=== PATIENT | female | born 1955 | race Caucasian/White ===

== ENCOUNTER 2021-01-28 15:21 | Emergency (ER) | payer MEDICAID ==
--- NOTE | 2021-01-28 15:29 | EDM.PDOC ---
<FerminGasper - Last Filed: 01/28/21 20:38> ED HPI GENERAL MEDICAL PROBLEM - General Chief Complaint: Cardiovascular Problem Stated Complaint: EMS Time Seen by Provider: 01/28/21 15:24 - Related Data Allergies Allergy/AdvReac Type Severity Reaction Status Date / Time Penicillins Allergy Other Verified 01/28/21 15:33 Home Meds: Home Meds hydroCHLOROthiazide [Hydrochlorothiazide] 25 mg PO DAILY 01/28/21 [History] lisinopriL [Lisinopril] 40 mg PO DAILY 01/28/21 [History] Course - Re-Assessments/Exams Free Text/Narrative Re-Assessment/Exam: 01/28/21 19:00 This patient was signed out to me from Dr. Del Rio at this time. I promptly performed a detailed physical examination, my examination was performed after ED treatments were initiated by the signout provider. Patient has been under the care of the previous provider up until this point. 01/28/21 20:40 Patient is choosing to leave against medical advice. I personally explained to the patient that choosing to do so may result in permanent bodily harm or . I discussed at great length that without further evaluation and monitoring t here may be unforeseen circumstances and deterioration causing permanent bodily harm or as a result of their choice. The patient is alert, oriented, and competent at this time. The patient states that they are aware of the serious risks as explained, but they still choose to leave against medical advice. The patient is aware that they did not allow us to complete their evaluation, and there is still the possibility that an emergency condition could exist. This has been thoroughly explained to the patient and the patient has indicated your understanding of such. The patient is assuming all risk and liability for such a condition, or for such a condition subsequently developing. The patient is doing so at their own free will, with a full knowledge of the potential consequences of these actions. The patient was encouraged to return at any time should they experience any changes about evaluation, or should they develop any new or worsening symptoms that concerns them. Departure - Departure Time of Disposition: 20:38 Disposition: Against Medical Advice 07 Clinical Impression: Acute dyspnea, Hypokalemia, QT prolongation, Left against medical advice Instructions: Shortness of Breath, Adult, [id number], Hypokalemia Referrals: Prince Alberto MD [Primary Care Provider] - 3 Days Forms: ED Department Discharge Additional Instructions: Return for any chest pain, high fevers, significant shortness of breath or change or worsening condition. Please follow-up with your primary care doctor in the next 1 to 2 days for reevaluation. Your EKG had something called a prolonged QT interval. The primary care doctor and/or angle bender will need to follow-up on this. Likewise your potassium level was somewhat low and this should be rechecked as well. -- -------- The following information is given to patients seen in the emergency department who are being discharged to home. This information is to outline your options for follow-up care. We provide all patients seen in our emergency department with a follow-up referral. The need for follow-up, as well as the timing and circumstances, are variable depending upon the specifics of your emergency department visit. If you don't have a primary care physician on staff, we will provide you with a referral. We always advise you to contact your personal physician following an emergency department visit to inform them of the circumstance of the visit and for follow-up with them and/or the need for any referrals to a consulting specialist. The emergency department will also refer you to a specialist when appropriate. This referral assures that you have the opportunity for follow-up care with a specialist. All of these measure are taken in an effort to provide you with optimal care, which includes your follow-up. Primary care clinics in the area: [facility] [address] [place] [id number] [facility] [address] [place] [address] Under all circumstances we always encourage you to contact your private physician who remains a resource for coordinating your care. When calling for follow-up care, please make the office aware that this follow-up is from your recent emergency room visit. If for any reason you are refused follow-up, please contact the [facility] Emergency Department at and asked to speak to the emergency department charge nurse. <Mikael Del Rio - Last Filed: 01/29/21 08:08> ED HPI GENERAL MEDICAL PROBLEM - General Source of Information: Reports: Patient - History of Present Illness INITIAL COMMENTS - FREE TEXT/NARRATIVE: 65-year-old female history of hypertension presents complaining of shortness of breath for 2 hours in duration. Patient was at work when this happened. Patient states she has some chills but no cough or fever or productive sputum. Patient denies any chest pain but she does have some tenderness in her back near her shoulder blades. There is no tearing discomfort. Patient is not vaccinated against Covid. No history of blood clots. No unilateral leg swelling. No recent travel or injury or cancer or surgery. No exacerbating relieving factors. Patient has never smoked ED ROS GENERAL - Review of Systems Review Of Systems: See Below ED EXAM, GENERAL - Physical Exam Exam: See Below Free Text/Narrative:: CONSTITUTIONAL: well appearing in no acute distress SKIN: Warm, dry, and intact without rash HENT: Normocephalic, atraumatic, PULMONARY: clear to ausculation bilaterally. No rales, rhonchi, wheezing CARDIOVASCULAR: regular rate, No murmur, rubs, or gallops GASTROINTESTINAL: soft, nondistended, nontender NEUROLOGIC: normal speech, sensorimotor function grossly intact MUSCULOSKELETAL: no gross deformities, atraumatic PSYCHIATRIC: normal mood and affect #1 Interpretation Time: 15:27 EKG Interpretation Comments: 98, normal sinus rhythm, nonspecific ST/T findings. Prolonged QT #2 Interpretation Time: 17:55 EKG Interpretation Comments: 85, normal sinus rhythm, nonspecific ST/T findings. Prolonged QT Course - Vital Signs Text/Narrative:: Differential diagnosis: Pneumonia, Covid, PE, CHF, reactive airway disease, anemia, anxiety, other Patient presents as outlined above. Patient had questionable decreased O2 sat initially but this was a portable monitor and there is no waveform to evaluate. She quickly bounced to the mid to high 90s. Patient was tachycardic. Patient states she has a history of anxiety in the past but she had 1 panic attack 15 years ago and anxiety is not a real ongoing issue for her. She does have a history of hypertension. The patient's Covid is negative. Imaging is negative for any infiltrate or CHF or PE or other abnormality. Patient does not have a smoking history I do not hear wheezing on exam. I do not think this represents an acute reactive airway disease exacerbation. When the patient was reambulated she did appear a little bit winded and became somewhat tachycardic which did prompt CT imaging despite negative D-dimer. In combination with the patient with a mild leukocytosis suggesting that there is some additional real pathology that is occurring. EKG is nonspecific and patient has not complaining of any sort of chest pain. Heart score is 3. Initial troponin was negative. Second t roponin is pending after which time it is anticipated the patient will be able to go home with return precautions and PCP follow-up. SBAR Christensen 7pm Last Recorded V/S: Last Vital Signs Temp 36.5 C 01/28/21 15:21 Pulse 87 01/28/21 20:08 Resp 18 01/28/21 20:08 BP 157/88 H 01/28/21 20:08 Pulse Ox 99 01/28/21 20:08 - Orders/Labs/Meds Labs: Laboratory Tests 01/28/21 01/28/21 01/28/21 Range/Units 15:40 15:40 15:40 WBC 13.06 H (4.0-11.0) K/uL RBC 4.40 (4.30-5.90) M/uL Hgb 13.6 (12.0-16.0) g/dL Hct 39.5 (36.0-46.0) % MCV 89.8 (80.0-98.0) fL MCH 30.9 (27.0-32.0) pg MCHC 34.4 (31.0-37.0) g/dL RDW Std Deviation 40.3 (28.0-62.0) fl RDW Coeff of Kailyn 12 (11.0-15.0) % Plt Count 369 (150-400) K/uL MPV 10.30 (7.40-12.00) fL Neut % (Auto) 54.4 (48.0-80.0) % Lymph % (Auto) 34.2 (16.0-40.0) % [place] % (Auto) 10.4 (0.0-15.0) % Eos % (Auto) 0.5 (0.0-7.0) % Baso % (Auto) 0.5 (0.0-1.5) % Neut # (Auto) 7.1 H (1.4-5.7) K/uL Lymph # (Auto) 4.5 H (0.6-2.4) K/uL [place] # (Auto) 1.4 H (0.0-0.8) K/uL Eos # (Auto) 0.1 (0.0-0.7) K/uL Baso # (Auto) 0.1 (0.0-0.1) K/uL Nucleated RBC % 0.0 /100WBC Nucleated RBCs # 0 K/uL INR 0.99 D-Dimer, Quantitative < 0.19 (0.0-0.50) mg/L FEU Sodium 137 (136-145) mmol/L Potassium 2.5 L (3.5-5.1) mmol/L Chloride 97 L (98-107) mmol/L Carbon Dioxide 29.2 (21.0-32.0) mmol/L BUN 26 H (7.0-18.0) mg/dL Creatinine 1.5 H (0.6-1.0) mg/dL Est Cr Clr Drug Dosing 31.76 mL/min Estimated GFR (MDRD) 35.1 ml/min Glucose 160 H (74-106) mg/dL Calcium 9.6 (8.5-10.1) mg/dL Magnesium (1.8-2.4) mg/dL Total Bilirubin 0.5 (0.2-1.0) mg/dL AST 11 L (15-37) IU/L ALT 23 (14-63) IU/L Alkaline Phosphatase 88 (46-116) U/L Troponin I < 0.050 (0.000-0.056) ng/mL Total Protein 7.9 (6.4-8.2) g/dL Albumin 4.0 (3.4-5.0) g/dL Globulin 3.9 (2.6-4.0) g/dL Albumin/Globulin Ratio 1.0 (0.9-1.6) Lipase 243 (73-393) U/L Influenza Type A RNA (NEGATIVE) RSV RNA (INAAT) (NEGATIVE) Influenza Type B RNA (NEGATIVE) SARS-CoV-2 RNA (MARK) (NEGATIVE) 01/28/21 01/28/21 01/28/21 Range/Units 15:55 18:28 18:28 WBC (4.0-11.0) K/uL RBC (4.30-5.90) M/uL Hgb (12.0-16.0) g/dL Hct (36.0-46.0) % MCV (80.0-98.0) fL MCH (27.0-32.0) pg MCHC (31.0-37.0) g/dL RDW Std Deviation (28.0-62.0) fl RDW Coeff of Kailyn (11.0-15.0) % Plt Count (150-400) K/uL MPV (7.40-12.00) fL Neut % (Auto) (48.0-80.0) % Lymph % (Auto) (16.0-40.0) % [place] % (Auto) (0.0-15.0) % Eos % (Auto) (0.0-7.0) % Baso % (Auto) (0.0-1.5) % Neut # (Auto) (1.4-5.7) K/uL Lymph # (Auto) (0.6-2.4) K/uL [place] # (Auto) (0.0-0.8) K/uL Eos # (Auto) (0.0-0.7) K/uL Baso # (Auto) (0.0-0.1) K/uL Nucleated RBC % /100WBC Nucleated RBCs # K/uL INR D-Dimer, Quantitative (0.0-0.50) mg/L FEU Sodium 135 L (136-145) mmol/L Potassium 2.7 L (3.5-5.1) mmol/L Chloride 95 L (98-107) mmol/L Carbon Dioxide 32.4 H (21.0-32.0) mmol/L BUN 29 H (7.0-18.0) mg/dL Creatinine 1.3 H (0.6-1.0) mg/dL Est Cr Clr Drug Dosing 36.64 mL/min Estimated GFR (MDRD) 41.4 ml/min Glucose 106 (74-106) mg/dL Calcium 9.1 (8.5-10.1) mg/dL Magnesium 2.0 (1.8-2.4) mg/dL Total Bilirubin (0.2-1.0) mg/dL AST (15-37) IU/L ALT (14-63) IU/L Alkaline Phosphatase (46-116) U/L Troponin I (0.000-0.056) ng/mL Total Protein (6.4-8.2) g/dL Albumin (3.4-5.0) g/dL Globulin (2.6-4.0) g/dL Albumin/Globulin Ratio (0.9-1.6) Lipase (73-393) U/L Influenza Type A RNA NEGATIVE (NEGATIVE) RSV RNA (INAAT) NEGATIVE (NEGATIVE) Influenza Type B RNA NEGATIVE (NEGATIVE) SARS-CoV-2 RNA (MARK) NEGATIVE (NEGATIVE) 01/28/21 01/28/21 Range/Units 19:46 19:46 WBC (4.0-11.0) K/uL RBC (4.30-5.90) M/uL Hgb (12.0-16.0) g/dL Hct (36.0-46.0) % MCV (80.0-98.0) fL MCH (27.0-32.0) pg MCHC (31.0-37.0) g/dL RDW Std Deviation (28.0-62.0) fl RDW Coeff of Kailyn (11.0-15.0) % Plt Count (150-400) K/uL MPV (7.40-12.00) fL Neut % (Auto) (48.0-80.0) % Lymph % (Auto) (16.0-40.0) % [place] % (Auto) (0.0-15.0) % Eos % (Auto) (0.0-7.0) % Baso % (Auto) (0.0-1.5) % Neut # (Auto) (1.4-5.7) K/uL Lymph # (Auto) (0.6-2.4) K/uL [place] # (Auto) (0.0-0.8) K/uL Eos # (Auto) (0.0-0.7) K/uL Baso # (Auto) (0.0-0.1) K/uL Nucleated RBC % /100WBC Nucleated RBCs # K/uL INR D-Dimer, Quantitative (0.0-0.50) mg/L FEU Sodium 137 (136-145) mmol/L Potassium 3.6 (3.5-5.1) mmol/L Chloride 99 (98-107) mmol/L Carbon Dioxide 30.2 (21.0-32.0) mmol/L BUN 28 H (7.0-18.0) mg/dL Creatinine 1.1 H (0.6-1.0) mg/dL Est Cr Clr Drug Dosing 43.30 mL/min Estimated GFR (MDRD) 50.2 ml/min Glucose 111 H (74-106) mg/dL Calcium 8.7 (8.5-10.1) mg/dL Magnesium (1.8-2.4) mg/dL Total Bilirubin (0.2-1.0) mg/dL AST (15-37) IU/L ALT (14-63) IU/L Alkaline Phosphatase (46-116) U/L Troponin I < 0.050 (0.000-0.056) ng/mL Total Protein (6.4-8.2) g/dL Albumin (3.4-5.0) g/dL Globulin (2.6-4.0) g/dL Albumin/Globulin Ratio (0.9-1.6) Lipase (73-393) U/L Influenza Type A RNA (NEGATIVE) RSV RNA (INAAT) (NEGATIVE) Influenza Type B RNA (NEGATIVE) SARS-CoV-2 RNA (MARK) (NEGATIVE) Meds: Medications Discontinued Medications Generic Name Dose Route Start Last Admin Trade Name Freq PRN Reason Stop Dose Admin Albuterol 2.5 mg 01/28/21 19:15 01/28/21 19:22 Albuterol 0.083% 2.5 Mg/3 Ml Neb Soln NEB 01/28/21 19:16 2.5 mg ONETIME ONE Administration Sodium Chloride 500 mls @ 999 mls/hr 01/28/21 17:12 01/28/21 17:26 Normal Saline IV 01/28/21 17:42 999 mls/hr .BOLUS ONE Administration Iopamidol 100 ml 01/28/21 18:09 01/28/21 18:09 Iopamidol 755 Mg/Ml 500 Ml Multipack Bottle IVPUSH 01/28/21 18:10 100 ml ONETIME STA Administration Potassium Chloride 40 meq 01/28/21 16:54 01/28/21 17:25 Potassium Chloride 20 Meq Tab.Er PO 01/28/21 16:55 40 meq ONETIME ONE Administration Potassium Chloride 40 meq 01/28/21 20:10 01/28/21 20:05 Potassium Chloride 20 Meq Tab.Er PO 01/28/21 20:11 40 meq ONETIME ONE Administration Departure - Departure Condition: Good
--- NOTE | 2021-01-28 16:30 | CR ---
INDICATION: Chest pain COMPARISON: none TECHNIQUE: Portable chest performed at 3:33 p.m. FINDINGS: The lungs are clear. There is no evidence of pneumothorax. The heart, mediastinum and pulmonary vessels are of normal size. There is no evidence of pleural fluid. IMPRESSION: Negative chest. Dictated by Larry Samuels MD @ 01/28/2021 4:29:27 PM (Electronically Signed)
[2021-01-28 16:37] LABS: BLOOD UREA NITROGEN,BUN 26 mg/dL (7.0-18.0); CARBON DIOXIDE,CO2 29.2 mmol/L (21.0-32.0); CHLORIDE,CL 97 mmol/L (98-107); GLUCOSE RANDOM 160 mg/dL (74-106); LIPASE 243 U/L (73-393); POTASSIUM,K 2.5 mmol/L (3.5-5.1); SODIUM,NA 137 mmol/L (136-145)
[2021-01-28] MEDS ORDERED: Potassium Chloride 20 MEQ Tab.ER PO ONE ×2 (16:54→20:10)
[2021-01-28 16:58] LABS: CORONAVIRUS COVID-19 NAA NEGATIVE (NEGATIVE); INFLUENZA A NAA NEGATIVE (NEGATIVE); INFLUENZA B NAA NEGATIVE (NEGATIVE); RESPIRATORY SYNCYTIAL VIR NAA NEGATIVE (NEGATIVE)
[2021-01-28] MEDS ORDERED: Sodium Chloride 0.9% 500 ML IV ONE (17:12)
[2021-01-28] MEDS ORDERED: Iopamidol 755 MG/ML 500 ML Multipack Bottle IVPUSH STA (18:09)
--- NOTE | 2021-01-28 18:53 | CT ---
INDICATION: Shortness of breath. Question pulmonary embolism. COMPARISON: none TECHNIQUE: CT volumetric acquisition was performed of the thorax during intravenous infusion of 100 cc of Isovue 370 FINDINGS: The CT images are of acceptable quality and demonstrate normal uniform vascular enhancement within the pulmonary arteries. There are no suspicious filling defects which would indicate pulmonary thromboemboli. There is no evidence of pleural or pericardial fluid. The heart and thoracic aorta appear normal. There is no evidence of lymphadenopathy within the central mediastinum or within either axilla. Incidentally noted are calcified gallstones within a normal-sized gallbladder. On lung window settings, there is no evidence of pneumothorax. The pulmonary parenchyma has uniform density and there is no evidence of suspicious nodules, masses or infiltrates. There are geographic areas mosaic attenuation which may indicate reactive airway disease with areas of terminal air-trapping. IMPRESSION: Mosaic attenuation pattern within the lungs which may reflect reactive airway changes. No evidence of pulmonary thromboembolism. Please note that all CT scans at this facility use dose modulation, iterative reconstruction, and/or weight-based dosing when appropriate to reduce radiation dose to as low as reasonably achievable. Dictated by Larry Samuels MD @ 01/28/2021 6:52:06 PM (Electronically Signed)
[2021-01-28 18:55] LABS: CARBON DIOXIDE,CO2 32.4 mmol/L (21.0-32.0); POTASSIUM,K 2.7 mmol/L (3.5-5.1)
[2021-01-28] MEDS ORDERED: Albuterol 0.083% 2.5 MG/3 ML Neb Soln NEB ONE (19:15)
[2021-01-28 20:42] LABS: CARBON DIOXIDE,CO2 30.2 mmol/L (21.0-32.0); POTASSIUM,K 3.6 mmol/L (3.5-5.1)
== END 2021-01-28 20:41 | disposition left against medical advice (07) ==
LOC: MW.ED 15:21
DX: E87.6 Hypokalemia (principal); R06.00 Dyspnea, unspecified; R94.31 Abnormal electrocardiogram [ECG] [EKG]; Z88.0 Allergy status to penicillin; Z20.822 Contact with and (suspected) exposure to COVID-19; Z79.899 Other long term (current) drug therapy
CPT/HCPCS: 0241U; 36415; 71045; 71275; 80048; 80053; 83690; 83735; 84484; 85025; 85379; 85610; 93005; 94640; 99285; A9270; J7030; Q9967

== ENCOUNTER 2021-06-25 15:35 | Emergency (ER) | payer MEDICAID ==
[2021-06-25] MEDS ORDERED: Sodium Chloride 0.9% 2.5 ML Syringe FLUSH PRN (15:36)
[2021-06-25] MEDS ORDERED: Sodium Chloride 0.9% 10 ML Syringe FLUSH PRN (15:36)
[2021-06-25] MEDS ORDERED: Sodium Chloride 0.9% 1,000 ML IV ONE (15:36)
[2021-06-25 16:31] LABS: BLOOD UREA NITROGEN,BUN 19 mg/dL (7.0-18.0); CHLORIDE,CL 104 mmol/L (98-107); GLUCOSE RANDOM 133 mg/dL (74-106); POTASSIUM,K 3.5 mmol/L (3.5-5.1); SODIUM,NA 141 mmol/L (136-145)
== END 2021-06-25 18:30 | disposition home or self-care (01) ==
LOC: MW.ED 15:35
DX: S09.90XA Unspecified injury of head, initial encounter (principal); R55 Syncope and collapse; I10 Essential (primary) hypertension; Z88.0 Allergy status to penicillin; Z79.899 Other long term (current) drug therapy
CPT/HCPCS: 36415; 70450; 71045; 80053; 81001; 84484; 85025; 87086; 93005; 99285; J3490; J7030

== ENCOUNTER 2021-12-28 01:57 | Emergency (ER) | payer MEDICAID ==
[2021-12-28] MEDS ORDERED: diphenhydrAMINE 50 MG/ML SDV IVPUSH ONE (02:07)
[2021-12-28] MEDS ORDERED: Ketorolac 30 MG/ML SDV IVPUSH ONE (02:07)
[2021-12-28] MEDS ORDERED: Metoclopramide 10 MG/2 ML SDV IVPUSH ONE (02:08)
[2021-12-28] MEDS ORDERED: Sodium Chloride 0.9% 1,000 ML IV ONE (02:08)
[2021-12-28 02:48] LABS: CARBON DIOXIDE,CO2 27.1 mmol/L (21.0-32.0); POTASSIUM,K 3.6 mmol/L (3.5-5.1)
[2021-12-28 03:43] LABS: CORONAVIRUS COVID-19 NAA NEGATIVE (NEGATIVE); INFLUENZA A NAA NEGATIVE (NEGATIVE); INFLUENZA B NAA NEGATIVE (NEGATIVE)
== END 2021-12-28 04:24 | disposition home or self-care (01) ==
LOC: MW.ED 01:57
DX: R51.9 Headache, unspecified (principal); I10 Essential (primary) hypertension; Z88.0 Allergy status to penicillin; Z79.899 Other long term (current) drug therapy; Z20.822 Contact with and (suspected) exposure to COVID-19
CPT/HCPCS: 0240U; 36415; 70450; 80053; 82375; 82550; 82803; 83605; 85025; 93005; 96361; 96374; 96375; 99284; J1200; J1885; J2765; J7030

== ENCOUNTER 2023-09-26 15:58 | Emergency (ER) | payer MEDICARE, OTHER ==
[2023-09-26 16:14] LABS: BASOPHILS ABSOLUTE AUTO 0.06 K/uL (0.00-0.20); BASOPHILS PERCENT AUTO 0.5 % (0.0-1.0); EOSINOPHILS ABSOLUTE AUTO 0.16 K/uL (0.00-0.45); EOSINOPHILS PERCENT AUTO 1.3 % (0.0-6.0); HEMATOCRIT 36.1 % (37.0-47.0); HEMOGLOBIN 13.1 g/dL (12.0-16.0); IMMATURE GRAN ABSOLUTE AUTO 0.04 K/uL (0.00-0.05); IMMATURE GRAN PERCENT AUTO 0.3 % (0.0-0.4); LYMPHOCYTES ABSOLUTE AUTO 4.23 K/uL (1.00-4.80); LYMPHOCYTES PERCENT AUTO 35.6 % (24.0-44.0); MEAN CORPUSCULAR HEMOGLOBIN 31.6 pg (28.0-32.0); MEAN CORPUSCULAR HGB CONC 36.3 g/dL (32.0-36.0); MEAN CORPUSCULAR VOLUME 87.2 fL (83.0-99.0); MEAN PLATELET VOLUME 9.6 fL (9.4-12.3); MONOCYTES ABSOLUTE AUTO 1.09 K/uL (0.00-0.80); MONOCYTES PERCENT AUTO 9.2 % (0.0-8.0); NEUTROPHILS PERCENT AUTO 53.1 % (41.0-71.0); PLATELET COUNT,PLT 308 K/uL (150-400); RED BLOOD CELL COUNT 4.14 M/uL (4.10-5.30); WHITE BLOOD CELL COUNT,WBC 11.88 K/uL (3.9-11.3)
[2023-09-26] MEDS: Famotidine 20 MG/2 ML SDV IVPUSH ONE (16:31)
[2023-09-26] MEDS: fentaNYL 50 MCG/ML SDV IVPUSH ONE (16:31)
[2023-09-26] MEDS: Sodium Chloride 0.9% 1,000 ML IV ONE (16:31)
[2023-09-26] MEDS: Alum Hydro/Mag Hydro/Simeth XS 15 ML, Lidocaine 2% 5 ML PO ONE (16:31)
[2023-09-26] MEDS: Sodium Chloride 0.9% 2.5 ML Syringe FLUSH PRN (16:33)
[2023-09-26] MEDS: Sodium Chloride 0.9% 10 ML Syringe FLUSH PRN (16:33)
[2023-09-26 16:39] LABS: A/G RATIO 0.9 (0.9-1.6); ALANINE AMINOTRANSFERASE,ALT 22 IU/L (14-63); ALBUMIN 3.4 g/dL (3.4-5.0); ALKALINE PHOSPHATASE 103 U/L (46-116); ASPARTATE AMNIOTRANSFERASE,AST 13 IU/L (15-37); BILIRUBIN TOTAL 0.5 mg/dL (0.2-1.0); BLOOD UREA NITROGEN,BUN 27 mg/dL (7.0-18.0); CALCIUM 9.2 mg/dL (8.5-10.1); CARBON DIOXIDE,CO2 26.7 mmol/L (21.0-32.0); CHLORIDE,CL 103 mmol/L (98-107); EST CRCL DRUG DOSING (CG) 45.78 mL/min; GLUCOSE RANDOM 144 mg/dL (74-106); POTASSIUM,K 3.4 mmol/L (3.5-5.1); PROTEIN TOTAL,TP 7.2 g/dL (6.4-8.2); SODIUM,NA 141 mmol/L (136-145)
[2023-09-26 16:40] LABS: ESTIMATED GFR 62 mL/min (>60)
[2023-09-26 16:45] LABS: TSH ULTRASENSITIVE 1.45 uIU/mL (0.36-3.74)
[2023-09-26 17:21] LABS: CORONAVIRUS COVID-19 NAA NEGATIVE (NEGATIVE); INFLUENZA A NAA NEGATIVE (NEGATIVE); INFLUENZA B NAA NEGATIVE (NEGATIVE)
[2023-09-26] MEDS: Pantoprazole 40 MG Tab.CR PO ONE (17:47)
== END 2023-09-26 17:50 | disposition home or self-care (01) ==
LOC: MW.ED 15:58
DX: R07.89 Other chest pain (principal); I10 Essential (primary) hypertension; Z88.0 Allergy status to penicillin; Z79.899 Other long term (current) drug therapy; Z75.8 Other problems related to medical facilities and other health care
CPT/HCPCS: 0240U; 36415; 71045; 80053; 84443; 84484; 85025; 85379; 93005; 96361; 96374; 96375; 99285; A9270; J3010; J3490; J7030; 93010; 99284